=== PATIENT | female | born 1965 | race Caucasian/White ===

== ENCOUNTER 2017-06-23 15:23 | Inpatient (IN) | payer OTHER, SELFPAY ==
[2017-06-23 15:49] LABS: Bilirubin Negative (Negative); Blood, Urine Large (Negative); Glucose, Urine (Dipstick) Negative (Negative); Ketone, Urine Negative (Negative); Nitrite Negative (Negative); Protein, Urine (Dipstick) Negative (Neg-Trace); Urobilinogen 0.2 mg/dL (0.2-1.0)
[2017-06-23 15:52] LABS: Bacteria/HPF None Seen HPF (None Seen); Hyaline Casts/LPF 0-3 HYALINE CAST LPF (0-3 Hyaline); RBC/HPF GREATER THAN 50-TNTC HPF (0-3); Squamous Epithelial 0-3 HPF (0-3); WBC/HPF 0-3 HPF (0-3)
[2017-06-23 15:53] LABS: #Eosinphils 0.1 thou/uL (0.0-0.7); #Lymphocytes 1.8 thou/uL (1.20-3.40); #Monocytes 0.5 thou/uL (0.11-0.59); #Neutrophils 7.9 thou/uL (1.40-6.50); %Basophils 0.1 % (0.0-1.0); %Eosinophils 0.9 % (0.0-10.0); %Lymphocytes 17.3 % (21.0-51.0); %Monocytes 4.5 % (0.0-10.0); Hematocrit 41.6 % (36.0-47.0); Red Blood Cell (RBC) Count 4.46 mill/uL (4.20-5.40); White Blood Cell (WBC) Count 10.3 thou/uL (4.8-10.8)
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
[2017-06-23 16:12] LABS: ALT (SGPT) 30 U/L (8-55); AST (SGOT) 27 U/L (5-34); Alkaline Phosphatase 80 U/L (40-150); Anion Gap 11 mmol/L (10-20); BUN (Urea Nitrogen) 14 mg/dL (9.8-20.1); Bilirubin, Total 0.4 mg/dL (0.2-1.2); Calc. Creatinine Clearance 0 mL/min (70-130); Calcium 8.9 mg/dL (7.8-10.44); Carbon Dioxide 27 mmol/L (22-29); Chloride 104 mmol/L (98-107); Estimated GFR-MDRD 81; Globulin 2.6 g/dL (2.4-3.5); Protein, Total 6.1 g/dL (6.0-8.3)
[2017-06-23 16:13] LABS: Mean Platelet Volume 8.4 fL (7.4-10.4)
[2017-06-23] MEDS ORDERED: Dextrose 5% in Water 1,000 ML IV PRN ×2 (16:28→16:29)
[2017-06-23] MEDS ORDERED: Dextrose 50% Abboject 50 ML SYRINGE SLOW IVP PRN ×2 (16:28→16:29)
[2017-06-23] MEDS ORDERED: Ondansetron HCl/PF 4 MG/2 ML Vial IVP PRN (16:29)
[2017-06-23] MEDS ORDERED: Promethazine HCl 25 MG/ML VIAL IM PRN (16:29)
[2017-06-23] MEDS ORDERED: hydrALAZINE 20 MG/ML VIAL SLOW IVP PRN (16:29)
[2017-06-23] MEDS ORDERED: Ondansetron ODT 4 MG TAB PO PRN (16:29)
[2017-06-23] MEDS ORDERED: Morphine 10 MG/ML VIAL ONE (16:55)
[2017-06-23 16:56] LABS: Phosphorus 3.3 mg/dL (2.3-4.7)
[2017-06-23] MEDS ORDERED: Adacel (T-DAP) 0.5 ML VIAL ONE (17:14)
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
[2017-06-23] MEDS ORDERED: traMADol HCl 50 MG TAB PO SCH ×2 (18:00→22:15)
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
[2017-06-23] MEDS: Famotidine 20 MG TAB PO SCH (20:53)
[2017-06-23] MEDS: Gabapentin 300 MG CAP PO SCH (20:53)
[2017-06-23] MEDS: Senokot S 8.6-50 MG TAB PO SCH (20:53)
[2017-06-23] MEDS: Acetaminophen 500 MG TAB PO SCH (20:54)
[2017-06-23] MEDS: Cyclobenzaprine 10 MG TAB PO PRN (22:18)
[2017-06-23] MEDS: Sodium Chloride 0.9% 1,000 ML IV SCH (22:20)
[2017-06-24 00:30] LABS: Hematocrit 39.3 % (36.0-47.0)
[2017-06-24] MEDS: Acetaminophen 500 MG TAB PO SCH ×2 (00:58→05:32)
[2017-06-24 02:45] VITALS: BMI 41.1
[2017-06-24 05:59] LABS: Anion Gap 13 mmol/L (10-20); BUN (Urea Nitrogen) 15 mg/dL (9.8-20.1); Calc. Creatinine Clearance 151 mL/min (70-130); Calcium 8.2 mg/dL (7.8-10.44); Carbon Dioxide 24 mmol/L (22-29); Chloride 103 mmol/L (98-107); Estimated GFR-MDRD 81
[2017-06-24] MEDS ORDERED: traMADol HCl 50 MG TAB PO SCH (06:00)
[2017-06-24] MEDS: Sodium Chloride 0.9% 1,000 ML IV SCH (07:40)
[2017-06-24] MEDS: Cyclobenzaprine 10 MG TAB PO PRN ×2 (09:04→18:18)
[2017-06-24] MEDS: Gabapentin 300 MG CAP PO SCH ×3 (09:04→20:59)
[2017-06-24 09:05] LABS: Hematocrit 38.8 % (36.0-47.0)
[2017-06-24] MEDS: HYDROcodone/Acetaminophen 10/325 mg Tablet PO SCH ×4 (10:04→22:23)
[2017-06-24] MEDS: Senokot S 8.6-50 MG TAB PO SCH ×2 (10:05→20:59)
[2017-06-24] MEDS: Famotidine 20 MG TAB PO SCH ×2 (10:06→20:59)
[2017-06-24] MEDS: Polyethylene Glycol 3350 17 GM Packet PO SCH (10:06)
[2017-06-24] MEDS: Ibuprofen 600 MG TAB PO SCH ×2 (10:12→18:18)
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
[2017-06-24] MEDS: HYDROcodone/Acetaminophen 10/325 mg Tablet PO PRN (14:12)
[2017-06-25] MEDS: Ibuprofen 600 MG TAB PO SCH ×3 (03:08→18:19)
[2017-06-25] MEDS: HYDROcodone/Acetaminophen 10/325 mg Tablet PO SCH ×6 (03:08→21:42)
[2017-06-25 06:07] LABS: Band 2 % (5-11); Hematocrit 39.8 % (36.0-47.0); Mean Platelet Volume 8.2 fL (7.4-10.4); Neutrophil 65 % (42-75); Red Blood Cell (RBC) Count 4.26 mill/uL (4.20-5.40); White Blood Cell (WBC) Count 7.7 thou/uL (4.8-10.8)
[2017-06-25] MEDS: HYDROcodone/Acetaminophen 10/325 mg Tablet PO PRN (07:15)
[2017-06-25] MEDS ORDERED: Bisacodyl 10 MG SUPP PR SCH (08:30)
[2017-06-25] MEDS ORDERED: Enoxaparin Sodium 40 MG/0.4 ML SYRINGE SC SCH (09:00)
[2017-06-25] MEDS: Famotidine 20 MG TAB PO SCH ×2 (09:43→21:41)
[2017-06-25] MEDS: Senokot S 8.6-50 MG TAB PO SCH ×2 (09:43→21:41)
[2017-06-25] MEDS: Gabapentin 300 MG CAP PO SCH ×3 (09:44→21:41)
[2017-06-25] MEDS: Enoxaparin Sodium 40 MG/0.4 ML SYRINGE SC SCH (09:44)
[2017-06-25] MEDS: Polyethylene Glycol 3350 17 GM Packet PO SCH (10:28)
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
[2017-06-26] MEDS: Ibuprofen 600 MG TAB PO SCH ×3 (02:16→18:06)
[2017-06-26] MEDS: HYDROcodone/Acetaminophen 10/325 mg Tablet PO SCH ×6 (02:16→21:37)
[2017-06-26] MEDS: Polyethylene Glycol 3350 17 GM Packet PO SCH (08:41)
[2017-06-26] MEDS: Gabapentin 300 MG CAP PO SCH ×3 (08:41→20:17)
[2017-06-26] MEDS: Enoxaparin Sodium 40 MG/0.4 ML SYRINGE SC SCH (08:41)
[2017-06-26] MEDS: Senokot S 8.6-50 MG TAB PO SCH ×2 (08:41→20:17)
[2017-06-26] MEDS: Famotidine 20 MG TAB PO SCH ×2 (08:41→20:17)
[2017-06-26] MEDS: Bisacodyl 10 MG SUPP PR SCH (10:28)
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
[2017-06-26] MEDS: HYDROcodone/Acetaminophen 10/325 mg Tablet PO PRN (15:30)
[2017-06-27] MEDS: Ibuprofen 600 MG TAB PO SCH ×3 (02:15→17:23)
[2017-06-27] MEDS: HYDROcodone/Acetaminophen 10/325 mg Tablet PO SCH ×6 (02:15→20:15)
--- NOTE | 2017-06-27 08:39 | PQF ---
CLINICAL DOCUMENTATION IMPROVEMENT CLARIFICATION FORM: ICD-10 Updated PLEASE DO AN ADDENDUM TO THE PROGRESS NOTE WITH ANY DOCUMENTATION UPDATES OR ADDITIONS AND CARRY THROUGH TO DC SUMMARY. THANK YOU. DATE: 06/27 ATTN: DR. KATHERINE JONES Please exercise your independent, professional judgment in responding to the clarification form. Clinical indicators are provided on the bottom of this form for your review Please check appropriate box(s): BMI > 40 with associated diagnosis of: (check one) [ x ] Morbid (Severe) Obesity [ ] Due to excess calories [ ] Obesity [ ] Other diagnosis [ ] Unable to determine For continuity of documentation, please document condition throughout progress notes and discharge summary. Thank You. BMI < 19 Under weight 19 - 24.9 Healthy 25.0 - 29.9 Slightly Overweight 30.0 - 34.9 Obese 35.0 - 39.9 Severely Obese 40.0 and Over Morbidly Obese CLINICAL INDICATORS - SIGNS / SYMPTOMS / LABS BMI of: 41.2 RISK FACTORS: CURRENT LUMBAR BURST FX REDUCED MOBILITY HX OF CAD TREATMENTS: PHYSICAL THERAPY HH, LOW CHOLESTEROL DIET TLSO BRACE THANK YOU! Indira (This form is maintained as a part of the permanent medical record) 2014 [employer]. All Rights Reserved Indira Barbosa RN, BSN [email or web address] Office: [phone] [facility] CENTERGeorge
[2017-06-27] MEDS: Senokot S 8.6-50 MG TAB PO SCH ×2 (10:39→20:14)
[2017-06-27] MEDS: Famotidine 20 MG TAB PO SCH ×2 (10:39→20:14)
[2017-06-27] MEDS: Gabapentin 300 MG CAP PO SCH ×4 (10:39→20:14)
[2017-06-27] MEDS: Enoxaparin Sodium 40 MG/0.4 ML SYRINGE SC SCH ×2 (10:40→10:42)
[2017-06-27] MEDS: Polyethylene Glycol 3350 17 GM Packet PO SCH (10:43)
[2017-06-27] MEDS: Bisacodyl 10 MG SUPP PR SCH (10:46)
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
[2017-06-27] MEDS ORDERED: Dexamethasone 4 mg/ml Vial SLOW IVP SCH (13:00)
[2017-06-27] MEDS ORDERED: Dexamethasone 4 MG TAB PO SCH (17:00)
[2017-06-28] MEDS: HYDROcodone/Acetaminophen 10/325 mg Tablet PO SCH ×6 (01:25→21:45)
[2017-06-28] MEDS: Ibuprofen 600 MG TAB PO SCH ×3 (01:25→18:58)
[2017-06-28] MEDS: Gabapentin 300 MG CAP PO SCH ×3 (08:22→20:34)
[2017-06-28] MEDS: Senokot S 8.6-50 MG TAB PO SCH ×2 (08:22→20:37)
[2017-06-28] MEDS: Famotidine 20 MG TAB PO SCH ×2 (08:22→20:34)
[2017-06-28] MEDS: Polyethylene Glycol 3350 17 GM Packet PO SCH (08:23)
[2017-06-28] MEDS: Enoxaparin Sodium 40 MG/0.4 ML SYRINGE SC SCH (08:23)
[2017-06-28] MEDS: Bisacodyl 10 MG SUPP PR SCH (08:49)
[2017-06-28 10:28] VITALS: TEMP 98.9
[2017-06-28] MEDS: HYDROcodone/Acetaminophen 10/325 mg Tablet PO PRN (18:59)
[2017-06-28 21:03] VITALS: BP 155/74
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
== END 2017-06-28 20:40 | disposition home or self-care (01) | DRG 552 ==
LOC: ERS 15:23 → SURG A 17:47
PROVIDERS: ADMIT Surgery; ATTEND Surgery
DX: S32.031A Stable burst fracture of third lumbar vertebra, initial encounter for closed fracture (principal); S36.892A Contusion of other intra-abdominal organs, initial encounter; Z68.41 Body mass index [BMI] 40.0-44.9, adult; V43.62XA Car passenger injured in collision with other type car in traffic accident, initial encounter; Y92.410 Unspecified street and highway as the place of occurrence of the external cause; E78.5 Hyperlipidemia, unspecified; Z95.5 Presence of coronary angioplasty implant and graft; I25.10 Atherosclerotic heart disease of native coronary artery without angina pectoris; F41.9 Anxiety disorder, unspecified; F32.9 Major depressive disorder, single episode, unspecified; F17.210 Nicotine dependence, cigarettes, uncomplicated; G89.11 Acute pain due to trauma; Z98.1 Arthrodesis status; Z88.5 Allergy status to narcotic agent; E66.01 Morbid (severe) obesity due to excess calories; Z23 Encounter for immunization
CPT/HCPCS: 36415; 71010; 72192; 80048; 80053; 81003; 81015; 83735; 84100; 85007; 85014; 85018; 85025; 85027; 86850; 86900; 86901; 87086; 90471; 90715; 96374; G0390; G8978-GP-CK; G8979-GP-CI; G8987-GO-CM; G8988-GO-CK; J1650; J2270; J2405; J8540

== ENCOUNTER 2017-07-24 15:57 | Outpatient (CLI) | payer OTHER ==
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
== END 2017-07-24 15:58 | disposition home or self-care (01) ==
LOC: TBSIIMAG 15:57
PROVIDERS: ATTEND Neurological Surgery
DX: Q76.2 Congenital spondylolisthesis (principal); M48.56XA Collapsed vertebra, not elsewhere classified, lumbar region, initial encounter for fracture
CPT/HCPCS: 72100

== ENCOUNTER 2017-08-08 12:11 | Outpatient (CLI) | payer OTHER ==
[~2017-08-08 12:11] MED LIST: Gadobenate Dimeglumine 529 MG/1 ML (20ML VIAL) ONE
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
== END 2017-08-08 12:12 | disposition home or self-care (01) ==
LOC: SCSMRI 12:11
PROVIDERS: ATTEND Neurological Surgery
DX: M48.56XA Collapsed vertebra, not elsewhere classified, lumbar region, initial encounter for fracture (principal); M43.8X6 Other specified deforming dorsopathies, lumbar region; Z98.1 Arthrodesis status
CPT/HCPCS: 72158; A9579

== ENCOUNTER 2018-07-12 16:11 | Emergency (ER) | payer OTHER, SELFPAY ==
[2018-07-12] MEDS ORDERED: Promethazine HCl 25 MG/ML VIAL ONE (18:29)
[2018-07-12] MEDS ORDERED: Morphine 4 MG/ML VIAL ONE (18:30)
== END 2018-07-12 18:51 | disposition home or self-care (01) ==
LOC: SCSER 16:11
DX: K02.9 Dental caries, unspecified (principal); E66.9 Obesity, unspecified; E78.5 Hyperlipidemia, unspecified; F32.9 Major depressive disorder, single episode, unspecified; F17.210 Nicotine dependence, cigarettes, uncomplicated
CPT/HCPCS: 96372; J2270; J2550

== ENCOUNTER 2018-07-24 00:03 | Observation (INO) | payer SELFPAY ==
[2018-07-24 01:26] LABS: Troponin I Less than 0.010 ng/mL (< 0.028)
[2018-07-24 04:39] LABS: Troponin I Less than 0.010 ng/mL (< 0.028)
[2018-07-24] MEDS ORDERED: Ondansetron ODT 4 MG TAB PO PRN (13:35)
[2018-07-24] MEDS ORDERED: Acetaminophen 325 MG TAB PO PRN (13:35)
[2018-07-24] MEDS ORDERED: Ondansetron PF 4 MG/2 ML Vial IVP PRN (13:35)
[2018-07-24 15:11] VITALS: BMI 47.7
[2018-07-24] MEDS: Gabapentin 300 MG CAP PO SCH ×2 (16:21→21:44)
[2018-07-24] MEDS ORDERED: Cyclobenzaprine 10 MG TAB PO SCH (21:00)
[2018-07-24] MEDS ORDERED: Atorvastatin Calcium 40 MG TAB PO SCH (21:00)
[2018-07-24] MEDS: Amoxicillin/Potassium Clav 500 MG TAB PO SCH (21:43)
[2018-07-24] MEDS: tiZANidine HCl 4 MG TAB PO SCH (21:44)
[2018-07-24] MEDS: Pantoprazole 40 MG VIAL IVP SCH (21:45)
[2018-07-24] MEDS: Metoprolol Tartrate 50 MG TAB PO SCH (21:47)
[2018-07-24] MEDS: AMOXicillin 250 MG CAP PO SCH (21:56)
--- NOTE | 2018-07-25 01:33 | CON ---
DATE OF CONSULTATION: HISTORY OF PRESENT ILLNESS: The patient is a 53-year-old female, who reports a several day history of chest pain. She says that it goes from the sternal notch to the epigastric area. It is worsened by swallowing. It is not worsened by position, exertion or other factors. She knows of no alleviating or precipitating factors other than eating. She has had no nausea or vomiting. She denies any weight loss. She has had hoarseness of her voice intermittently over the last several months. She has not had prior GI workup. She denies any diagnosis of gastroesophageal reflux disease. PAST MEDICAL HISTORY: Significant for chronic back pain, hyperlipidemia, coronary artery disease. PAST SURGICAL HISTORY: Includes cardiac stent placement, tonsillectomy, back surgery. SOCIAL HISTORY: She does smoke pack per day. Does not drink. ALLERGIES: INCLUDE HYDROGEN PEROXIDE, PERCODAN, AND TALWIN. MEDICATIONS: Include gabapentin 600 mg 2 tablets p.o. t.i.d., Motrin 800 mg t.i.d., duloxetine 60 mg p.o. daily, tizanidine 4 mg 1 p.o. t.i.d., Zoloft 100 mg p.o. at bedtime, calcium chewable 600 mg p.o. t.i.d., metoprolol 25 mg 1 p.o. b.i.d., aspirin 81 mg p.o. daily, atorvastatin 80 mg p.o. daily, magnesium 250 mg 1 p.o. daily, CoQ10 one p.o. daily, Cleocin 300 mg 1 every 6 hours. REVIEW OF SYMPTOMS: CONSTITUTIONAL: No fever or chills. No weight loss. EYES: No blurred vision or double vision. ENT: No sore throat or ear aches. CARDIOVASCULAR: Positive for chest pain. Negative for palpitations. PULMONARY: No shortness of breath, cough, or wheezing. GI: See above. : No hematuria or dysuria. MUSCULOSKELETAL: No joint pain or muscle weakness. SKIN: No rashes. NEUROLOGIC: No numbness or seizure activity. PHYSICAL EXAMINATION: GENERAL: Shows an obese white female, in no acute distress. VITAL SIGNS: Temperature is 98.6, pulse 59, respiratory rate 16, blood pressure 141/74. HEENT: Unremarkable. NECK: Supple. CHEST: Clear. CARDIOVASCULAR: Regular rate and rhythm. ABDOMEN: Soft, nontender without organomegaly or masses. Bowel sounds are present, normoactive. RECTAL: Deferred. EXTREMITIES: Normal. NEUROLOGIC: Nonfocal. LABORATORY DATA: Shows only a troponin of less than 0.010. ASSESSMENT: 1. Odynophagia. 2. Dysphagia. 3. Suspected gastroesophageal reflux disease. 4. Obesity. 5. Coronary artery disease. RECOMMENDATIONS: EGD in a.m. Job ID: [id number]
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
[2018-07-25 06:00] LABS: #Basophils 0.1 thou/uL (0.0-0.2); #Eosinphils 0.1 thou/uL (0.0-0.7); #Lymphocytes 3.1 thou/uL (1.20-3.40); #Monocytes 0.5 thou/uL (0.11-0.59); #Neutrophils 3.4 thou/uL (1.40-6.50); %Basophils 1.2 % (0.0-1.0); %Eosinophils 1.7 % (0.0-10.0); %Lymphocytes 43.1 % (21.0-51.0); %Monocytes 7.4 % (0.0-10.0); %Neutrophils 46.6 % (42.0-75.0); Hemoglobin 13.4 g/dL (12.0-16.0); Mean Corpuscular HGB CONC 33.3 g/dL (32.0-36.0); Mean Corpuscular Hemoglobin 30.5 pg (27.0-31.0); Mean Corpuscular Volume 91.5 fL (78.0-98.0); Mean Platelet Volume 8.6 fL (7.4-10.4); Platelet Count 182 thou/uL (130-400); RBC Distribution Width 13.3 % (11.5-14.5); Red Blood Cell (RBC) Count 4.39 mill/uL (4.20-5.40); White Blood Cell (WBC) Count 7.2 thou/uL (4.8-10.8)
[2018-07-25 06:10] LABS: Anion Gap 10 mmol/L (10-20); BUN (Urea Nitrogen) 16 mg/dL (9.8-20.1); Calc. Creatinine Clearance 141 mL/min (70-130); Calcium 9.2 mg/dL (7.8-10.44); Carbon Dioxide 28 mmol/L (22-29); Chloride 104 mmol/L (98-107); Estimated GFR-MDRD 64; Glucose 126 mg/dL (70-105); Potassium 4.2 mmol/L (3.5-5.1); Sodium 138 mmol/L (136-145)
[2018-07-25] MEDS ORDERED: Magnesium Oxide 250 MG TAB PO SCH (09:00)
[2018-07-25] MEDS ORDERED: DULoxetine 60 MG CAP PO SCH (09:00)
[2018-07-25] MEDS ORDERED: Lidocaine Viscous Sol 2% 15 ml UD Cup SSW PRN (10:53)
[2018-07-25] MEDS ORDERED: Ondansetron HCl/PF 4 MG/2 ML Vial IVP PRN (10:57)
[2018-07-25] MEDS ORDERED: Promethazine HCl 25 MG/ML VIAL SLOW IVP PRN (10:57)
[2018-07-25] MEDS ORDERED: Promethazine HCl 25 MG/ML VIAL IM PRN (10:57)
[2018-07-25] MEDS: Gabapentin 300 MG CAP PO SCH ×2 (11:17→14:48)
[2018-07-25] MEDS: Metoprolol Tartrate 50 MG TAB PO SCH (11:17)
[2018-07-25] MEDS: tiZANidine HCl 4 MG TAB PO SCH ×2 (11:17→14:48)
[2018-07-25] MEDS: Amoxicillin/Potassium Clav 500 MG TAB PO SCH (11:17)
[2018-07-25] MEDS: AMOXicillin 250 MG CAP PO SCH (11:17)
[2018-07-25] MEDS: Pantoprazole 40 MG VIAL IVP SCH (11:18)
[2018-07-25] MEDS ORDERED: PROPOFOL 200 MG/20 ML VIAL ONE (11:21)
[2018-07-25] MEDS: Sucralfate 1 GM/10 ML UDCUP PO SCH ×2 (14:48→17:06)
[2018-07-25 17:25] VITALS: BP 102/52; TEMP 98.8
--- NOTE | 2018-07-25 20:54 | PDOC.EVN ---
Event Note - Event Note Event Note: Patient was seen 07/24/18 with Adi Robin. Has CP that is very possibly related to GI tract symptoms from the clindamycin. Heart is regular, no mumur. Lungs clear. Has some epigastric TTP. Stopped Clindamycin. GI consult. Continue tele, trops.
--- NOTE | 2018-07-28 08:36 | OP ---
DATE OF PROCEDURE: 07/25/2018 PREOPERATIVE DIAGNOSES: Dysphagia and odynophagia. DESCRIPTION OF PROCEDURE: After informed consent was obtained, the patient was placed in the left lateral decubitus position. Anesthesia was administered per the Anesthesia Department. Forward-viewing endoscope was inserted into esophagus under direct visualization with ease and passed to the second portion of the duodenum with ease. Second portion of the duodenum and duodenal bulb were normal. The pylorus was normal. The antrum, body, fundus, and cardia were all normal except for multiple erosions and gastric antrum. These were biopsied. Retroflexion of the stomach was normal. The esophagus and the mid esophagus showed kissing ulcers consistent with pill esophagitis, this area was biopsied. ASSESSMENT: 1. Mid esophageal ulcers consistent with pill esophagitis. 2. Erosive antritis - status post biopsy. 3. Otherwise normal esophagogastroduodenoscopy. RECOMMENDATIONS: 1. Carafate slurry. 2. Careful pill swallowing technique including sitting up when swallowing all pills and drinking lots of water. 3. Viscous lidocaine as needed for painful swallowing. 4. Stable for discharge from GI standpoint. Job ID: [id number]
== END 2018-07-25 18:33 | disposition home or self-care (01) ==
LOC: ERS 00:03 → ERHOLD 01:58 → 2SW 15:01
PROVIDERS: ADMIT Internal Medicine; ATTEND Internal Medicine
PROC: 0DB78ZX Excision of Stomach, Pylorus, Via Natural or Artificial Opening Endoscopic, Diagnostic (ICD-10-PCS; principal; 2018-07-25)
DX: K22.10 Ulcer of esophagus without bleeding (principal); K29.50 Unspecified chronic gastritis without bleeding; R07.89 Other chest pain; I25.10 Atherosclerotic heart disease of native coronary artery without angina pectoris; F17.210 Nicotine dependence, cigarettes, uncomplicated; G89.29 Other chronic pain; M54.2 Cervicalgia; M54.9 Dorsalgia, unspecified; E78.5 Hyperlipidemia, unspecified; I10 Essential (primary) hypertension; M25.519 Pain in unspecified shoulder; F41.9 Anxiety disorder, unspecified; E66.9 Obesity, unspecified; Z68.42 Body mass index [BMI] 45.0-49.9, adult; F32.9 Major depressive disorder, single episode, unspecified; Z79.82 Long term (current) use of aspirin; Z79.899 Other long term (current) drug therapy; Z88.5 Allergy status to narcotic agent; Z88.8 Allergy status to other drugs, medicaments and biological substances; Z95.5 Presence of coronary angioplasty implant and graft
CPT/HCPCS: 36415; 80048; 84484; 85025; 88305; 88312; 88313; 96374; 96376; 99406; C9113; G0378; J2704